=== PATIENT | male | born 1955 | race Caucasian/White ===

== ENCOUNTER 2022-04-12 14:00 | Emergency (ER) | payer MEDICARE, OTHER ==
[2022-04-12 14:25] LABS: BASOPHIL 0.5 % (0-2); EOSINOPHIL 2.2 % (0-7); HCT 33.5 % (42.0-52.0); HGB 9.4 g/dl (13.2-18.0); LYMPHOCYTE 57.3 % (15-48); MCH 22.9 pg (25.0-31.0); MCHC 28.1 g/dL (32.0-36.0); MCV 81.5 fL (78.0-100.0); MONOCYTE 6.2 % (0-12); MPV 10.1 fL (6.0-9.5); NEUTROPHIL 31.1 % (41-80); NRBC 0.4; PLT 98 K/uL (150-400); RBC 4.11 M/uL (4.70-6.00); RDW 15.7 % (11.5-14.0); WBC 11.3 K/uL (4.0-10.5)
[2022-04-12 14:37] LABS: INR 1.61 (0.9-1.2); PROTHROMBIN TIME 18.4 SECONDS (11.8-13.4)
[2022-04-12 14:38] LABS: PTT 35.7 SECONDS (24.4-34.7)
[2022-04-12 14:57] LABS: ALBUMIN 2.5 g/dL (3.4-5.0); BILIRUBIN - TOTAL 0.4 mg/dL (0.2-1.0); BUN/CREAT RATIO (CALC) 14.5 RATIO; CREATININE 1.1 mg/dL (0.67-1.17); GLOBULIN (CALCULATION) 2.5 g/dL; POTASSIUM 3.7 mmol/L (3.5-5.1)
[2022-04-12 15:07] LABS: D-DIMER > 20.00 ug/mLFEU (0.00-0.41)
== END 2022-04-12 14:29 | disposition expired ==
LOC: FER 14:00
PROVIDERS: Emergency Medicine
DX: I46.9 Cardiac arrest, cause unspecified (principal); S51.012A Laceration without foreign body of left elbow, initial encounter; Y93.11 Activity, swimming; Y92.89 Other specified places as the place of occurrence of the external cause
CPT/HCPCS: 36415; 36600; 80053; 82550; 82553; 82803; 83605; 84484; 85025; 85379; 85610; 85730; 92950; J0171; J0610